=== PATIENT | male | born 1960 | race Hispanic/Latino ===

== ENCOUNTER 2020-02-15 21:56 | Observation (INO) | payer BC ==
[~2020-02-15] VITALS: Ht 170.2 cm; Wt 79.4 kg
[2020-02-15 22:45] LABS: BASOPHILS % 0.3 % (0.0-1.0); EOSINOPHILS % 0.3 % (0.0-6.0); HEMOGLOBIN 14.5 g/dL (14.0-18.0); LYMPHOCYTES # (AUTO) 2.1 (1.0-3.2); LYMPHOCYTES % 28.8 % (18.0-39.1); MEAN CORPUSCULAR HEMOGLOBIN 32.7 pg (28-32); MEAN CORPUSCULAR HGB CONC 34.5 g/dL (31-35); MEAN CORPUSCULAR VOLUME 94.8 fL (81-99); MONOCYTES # (AUTO) 0.3 (0.2-0.8); MONOCYTES % 4.7 % (4.4-11.3); NEUTROPHILS # (AUTO) 4.8 (2.1-6.9); NEUTROPHILS % 65.6 % (38.7-80.0); PLATELET COUNT 206 x10e3/uL (140-360); RED BLOOD COUNT 4.43 x10e6/uL (4.3-5.7)
[2020-02-15 22:55] LABS: INR 0.92; PROTHROMBIN TIME 12.8 seconds (11.9-14.5)
[2020-02-15 22:56] LABS: PARTIAL THROMBOPLASTIN TIME 31.7 seconds (23.8-35.5)
[2020-02-15 23:03] LABS: AMYLASE 100 U/L (25-125); LIPASE 46 U/L (8-78)
[2020-02-15 23:05] LABS: ALANINE AMINOTRANSFERASE 19 IU/L (0-55); ALBUMIN 4.3 g/dL (3.5-5.0); ALBUMIN/GLOBULIN RATIO 1.3 (0.8-2.0); ALKALINE PHOSPHATASE 69 IU/L (40-150); ANION GAP 11.7 mmol/L (8-16); BLOOD UREA NITROGEN 8 mg/dL (7-26); BUN/CREATININE RATIO 10 (6-25); CALCIUM 9.7 mg/dL (8.4-10.2); CARBON DIOXIDE 26 mmol/L (22-29); CHLORIDE 107 mmol/L (98-107); CREATINE KINASE 103 IU/L (30-200); EST GLOMERULAR FILTRATION RATE > 60 ML/MIN (60-); GLUCOSE 104 mg/dL (74-118); POTASSIUM 3.7 mmol/L (3.5-5.1); SODIUM 141 mmol/L (136-145)
--- NOTE | 2020-02-15 23:06 | Emergency Department Note ---
History of Present Illnes History of Present Illness Chief Complaint: Chest Pain History of Present Illness This is a 59 year old male via POV for c/o chest pain, pt states that he was at work when he felt a 10 second acute onset of chest pain and almost felt like blacking out, pt has no complaints now other than mild epigastric pain that goes away with rest, STATES NO SYMPTOMS AT THIS TIME. Historian: Patient Arrival Mode: Car Onset (how long ago): hour(s) (1) Location: UPPER ABD/CHEST Quality: PAIN, ALMOST FAINTED Radiation: Reports other (BILATERAL SHOULDERS) Severity: moderate Onset quality: sudden Duration (how long): hour(s) (ONLY LASTED A FEW SECONDS) Timing of current episode: unable to specify Progression: resolved Chronicity: new Context: Denies recent illness, Denies recent surgery Relieving factors: rest Exacerbating factors: other (PT WAS AT WORK WHEN SYMPTOMS OCCURED) Treatments prior to arrival: none Past Medical/Family History Physician Review I have reviewed the patient's past medical and family history. Any updates have been documented here. Past Medical History Recent Fever: No Clinical Suspicion of Infectio: No New/Unexplained Change in Ment: No Past Medical History: None Other Medical History: pt denies any medical hx Social History Smoking Cessation: Never Smoker Alcohol Use: Occasional Any Illegal Drug Use: No Review of Systems Review of Systems Constitutional: Reports no symptoms EENTM: Reports no symptoms Cardiovascular: Reports as per HPI Respiratory: Reports no symptoms Gastrointestinal: Reports no symptoms Genitourinary: Reports no symptoms Musculoskeletal: Reports no symptoms Integumentary: Reports no symptoms Neurological: Reports as per HPI Psychological: Reports no symptoms Endocrine: Reports no symptoms Hematological/Lymphatic: Reports no symptoms Physical Exam Related Data Allergies: Coded Allergies: No Known Allergies (Unverified , 02/15/20) Triage Vital Signs Vital Signs Date Time Temp Pulse Resp B/P (MAP) Pulse Ox O2 Delivery O2 Flow Rate FiO2 02/15/20 22:30 98.1 86 18 158/90 99 Room Air Physical Exam CONSTITUTIONAL Constitutional: Present well-developed, Present well-nourished; Absent distressed HENT HENT: Present normocephalic, Present atraumatic, Present oropharynx clear/moist, Present nose normal HENT L/R: Present left ext ear normal, Present right ext ear normal EYES Eyes: Reports PERRL, Reports conjunctivae normal NECK Neck: Present ROM normal PULMONARY Pulmonary: Present effort normal, Present breath sounds normal CARDIOVASCULAR Cardiovascular: Present regular rhythm, Present heart sounds normal, Present capillary refill normal, Present normal rate GASTROINTESTINAL Abdominal: Present soft, Present nontender, Present bowel sounds normal GENITOURINARY Genitourinary: Present exam deferred SKIN Skin: Present warm, Present dry MUSCULOSKELETAL Musculoskeletal: Present ROM normal NEUROLOGICAL Neurological: Present alert, Present oriented x 3, Present no gross motor or sensory deficits PSYCHOLOGICAL Psychological: Present mood/affect normal, Present judgement normal Results Laboratory Result Diagram: 02/15/20 2235 Laboratory Laboratory Tests Test 02/15/20 22:35 White Blood Count 7.29 x10e3/uL (4.8-10.8) Red Blood Count 4.43 x10e6/uL (4.3-5.7) Hemoglobin 14.5 g/dL (14.0-18.0) Hematocrit 42.0 % (38.2-49.6) Mean Corpuscular Volume 94.8 fL (81-99) Mean Corpuscular Hemoglobin 32.7 pg (28-32) Mean Corpuscular Hemoglobin Concent 34.5 g/dL (31-35) Red Cell Distribution Width 13.0 % (11.7-14.4) Platelet Count 206 x10e3/uL (140-360) Neutrophils (%) (Auto) 65.6 % (38.7-80.0) Lymphocytes (%) (Auto) 28.8 % (18.0-39.1) Monocytes (%) (Auto) 4.7 % (4.4-11.3) Eosinophils (%) (Auto) 0.3 % (0.0-6.0) Basophils (%) (Auto) 0.3 % (0.0-1.0) Neutrophils # (Auto) 4.8 (2.1-6.9) Lymphocytes # (Auto) 2.1 (1.0-3.2) Monocytes # (Auto) 0.3 (0.2-0.8) Eosinophils # (Auto) 0.0 (0.0-0.4) Basophils # (Auto) 0.0 (0.0-0.1) Absolute Immature Granulocyte (auto 0.02 x10e3/uL (0-0.1) Prothrombin Time 12.8 seconds (11.9-14.5) Prothromb Time International Ratio 0.92 Activated Partial Thromboplast Time 31.7 seconds (23.8-35.5) Sodium Level 141 mmol/L (136-145) Potassium Level 3.7 mmol/L (3.5-5.1) Chloride Level 107 mmol/L (98-107) Carbon Dioxide Level 26 mmol/L (22-29) Anion Gap 11.7 mmol/L (8-16) Blood Urea Nitrogen 8 mg/dL (7-26) Creatinine 0.80 mg/dL (0.72-1.25) Estimat Glomerular Filtration Rate > 60 ML/MIN (60-) BUN/Creatinine Ratio 10 (6-25) Glucose Level 104 mg/dL (74-118) Calcium Level 9.7 mg/dL (8.4-10.2) Total Bilirubin 0.3 mg/dL (0.2-1.2) Aspartate Amino Transf (AST/SGOT) 26 IU/L (5-34) Alanine Aminotransferase (ALT/SGPT) 19 IU/L (0-55) Alkaline Phosphatase 69 IU/L (40-150) Creatine Kinase 103 IU/L (30-200) Creatine Kinase MB 1.50 ng/mL (0-5.0) Troponin I 0.006 ng/mL (0-0.300) Total Protein 7.6 g/dL (6.5-8.1) Albumin 4.3 g/dL (3.5-5.0) Globulin 3.3 g/dL (2.3-3.5) Albumin/Globulin Ratio 1.3 (0.8-2.0) Amylase Level 100 U/L (25-125) Lipase 46 U/L (8-78) Laboratory Tests Test 02/15/20 22:35 White Blood Count 7.29 x10e3/uL (4.8-10.8) Red Blood Count 4.43 x10e6/uL (4.3-5.7) Hemoglobin 14.5 g/dL (14.0-18.0) Hematocrit 42.0 % (38.2-49.6) Mean Corpuscular Volume 94.8 fL (81-99) Mean Corpuscular Hemoglobin 32.7 pg (28-32) Mean Corpuscular Hemoglobin Concent 34.5 g/dL (31-35) Red Cell Distribution Width 13.0 % (11.7-14.4) Platelet Count 206 x10e3/uL (140-360) Neutrophils (%) (Auto) 65.6 % (38.7-80.0) Lymphocytes (%) (Auto) 28.8 % (18.0-39.1) Monocytes (%) (Auto) 4.7 % (4.4-11.3) Eosinophils (%) (Auto) 0.3 % (0.0-6.0) Basophils (%) (Auto) 0.3 % (0.0-1.0) Neutrophils # (Auto) 4.8 (2.1-6.9) Lymphocytes # (Auto) 2.1 (1.0-3.2) Monocytes # (Auto) 0.3 (0.2-0.8) Eosinophils # (Auto) 0.0 (0.0-0.4) Basophils # (Auto) 0.0 (0.0-0.1) Absolute Immature Granulocyte (auto 0.02 x10e3/uL (0-0.1) Prothrombin Time 12.8 seconds (11.9-14.5) Prothromb Time International Ratio 0.92 Activated Partial Thromboplast Time 31.7 seconds (23.8-35.5) Lab results reviewed: Yes Imaging Imaging results reviewed: Yes Impressions Procedure: [id number] CT/CTA CHEST Exam Date: Exam Time: REPORT STATUS: Signed EXAM: CTA of the Thoracoabdominal Aorta and Pelvic Arteries WITH Contrast INDICATION: EVAL FOR ANUERSYM COMPARISON: None. TECHNIQUE: Multi-detector CT technology was employed. CTA Gated axial imaging of the chest, abdomen, and pelvis was performed after the administration of IV contrast. IV CONTRAST: 150 mL of Omnipaque 350 ORAL CONTRAST: None COMPLICATIONS: None For optimization of anatomic evaluation, multiplanar reconstruction, maximum intensity projections, and advanced 3-D off-line postprocessing were performed on a dedicated stand-alone workstation under the direct supervision of the interpreting physician. FINDINGS: Potential study limitations: None. LINES/ TUBES: None. VASCULAR WITH ADVANCED 3-D OFF-LINE POSTPROCESSING: Aortic valve morphology is trileaflet and contains no calcifications. The thoracic aorta is normal in course, caliber, and contour. There is no acute aortic pathology, such as dissection, intramural hematoma, or contained rupture. Aortic plaques: Mild. The arch vessel branching pattern is conventional. All of the arch branch vessels appear widely patent in their proximal portions. The abdominal aorta is normal in course, caliber, and contour. There is no acute aortic pathology . Aortic plaques: Mild. The celiac axis, SMA, and LATRICIA are patent. Renal arteries are patent. The pelvic arteries are normal in caliber and contour. There are minimal atherosclerotic changes of the pelvic arteries. LUNGS AND AIRWAYS: Mild dependent atelectasis. No consolidation. Airways are patent. PLEURA: The pleural spaces are clear.. HEART AND MEDIASTINUM: The thyroid gland is normal. No mediastinal, hilar or axillary lymphadenopathy. The main pulmonary artery is normal in size. The cardiac chambers demonstrate normal atrioventricular and ventriculoarterial concordance, and systemic and pulmonary venous return. The cardiac chambers are normal in size. The coronary arteries have normal origins and courses. There are mild coronary calcifications, though this study was not optimized for coronary artery evaluation. There is no pericardial effusion. ABDOMEN: The liver, gallbladder, spleen, and pancreas appear normal. The adrenal glands appear normal. Both kidneys are normal in size, shape, and density. There is no abnormal mass or hydronephrosis. PELVIS: There is no significant retroperitoneal adenopathy. No free fluid or free air within the abdomen or pelvis. The bowel appears unremarkable. The urinary bladder appears normal. BONES: Mild compression deformity of the T7 vertebral body involving less than 10% vertebral body height loss. No retropulsion. Degenerative changes of the thoracic spine. Anterior flowing osteophytes. IMPRESSION: 1. Normal thoracic aorta. No acute aortic pathology identified. 2. Normal abdominal aorta. No acute abdominal aortic pathology. 3. Age-indeterminate mild compression deformity of the T7 vertebral body. Signed by: Louisa Vázquez MD on 02/16/2020 12:38 AM Dictated By: LOUISA VÁZQUEZ MD Transcribed By: TY on 02/16/2037 Procedure: [id number] CT/CT BRAIN WO Exam Date: Exam Time: REPORT STATUS: Signed EXAMINATION: Head CT without contrast. HISTORY:Near syncope. COMPARISON:None. TECHNIQUE: Multidetector axial images were obtained from the foramen magnum to the vertex without contrast. The images were reconstructed using brain and bone algorithms. Thin section brain images were reformatted into coronal and sagittal planes. Dose modulation, iterative reconstruction, and/or weight based adjustment of the mA/kV was utilized to reduce the radiation dose to as low as reasonably achievable. Intravenous contrast: None IMAGE QUALITY: Acceptable. FINDINGS: Skull/scalp: No lytic or blastic. lesions. No surgical changes. Parenchyma: Nonspecific bilateral frontoparietal patchy white matter hypodensity are likely related to small vessel ischemic changes. No acute hemorrhage, mass or acute major vascular territorial infarct. Arteries: No density suggestive of thrombosis. Dural sinuses: No abnormal density suggestive of thrombosis. Ventricles: No hydrocephalus or displacement. Extra-axial spaces: No abnormal density. Brain volume: Normal for age. Craniocervical junction: No mass, Chiari malformation, or basilar invagination. Sella: No mass. Paranasal/mastoid sinuses: Imaged portions unremarkable. IMPRESSION: No acute intracranial abnormality. Mild supratentorial white matter microvascular ischemic changes. Signed by: Dr. Yazmin Chu M.D. on 02/16/2020 12:20 AM Dictated By: YAZMIN CHU MD Transcribed By: TY on 02/16/2019 COPY TO: CALOS JERNIGAN MD~ Procedures 12 Lead ECG Interpretation ECG Interpretation : ECG: ECG 1 [facility]: Interpreted by ED physician Date: Feb 15, 2020 Time: 22:30 Rhythm: sinus rhythm Rate: normal BPM: 82 QRS axis: normal ST segments normal: Yes T waves normal: Yes Other findings: no other findings Clinical Impression: normal ECG Assessment & Plan Medical Decision Making MDM PT WITH SHORT EPISODE OF UPPER ABD/CHEST PAIN WITH NEAR SYNCOPE CBC, CMP, EKG, CARDIAC ENZYMES, CTA CHEST/ABD/PELVIS, CT BRAIN ORDERED TO EVAL FOR MYOCARDIAL INFARCTION, ARRHYTHMIA, AORTIC ANEURYSM, AORTIC DISSECTION, I SPOKE WITH DR CAT AND DR MARA MARIN IN OBS Assessment & Plan Final Impression: (1) Chest pain (2) Near syncope Depart Disposition: ADMITTED Last Vital Signs Date Time Temp Pulse Resp B/P (MAP) Pulse Ox O2 Delivery O2 Flow Rate FiO2 02/15/20 22:30 98.1 86 18 158/90 99 Room Air CALOS JERNIGAN MD Feb 15, 2020 23:06
[2020-02-16] VITALS (8 sets, daily range): BP systolic 121–144; BP diastolic 72–87
--- NOTE | 2020-02-16 00:23 | Diagnostic Imaging Report ---
EXAMINATION: Head CT without contrast. HISTORY:Near syncope. COMPARISON:None. TECHNIQUE: Multidetector axial images were obtained from the foramen magnum to the vertex without contrast. The images were reconstructed using brain and bone algorithms. Thin section brain images were reformatted into coronal and sagittal planes. Dose modulation, iterative reconstruction, and/or weight based adjustment of the mA/kV was utilized to reduce the radiation dose to as low as reasonably achievable. Intravenous contrast: None IMAGE QUALITY: Acceptable. FINDINGS: Skull/scalp: No lytic or blastic. lesions. No surgical changes. Parenchyma: Nonspecific bilateral frontoparietal patchy white matter hypodensity are likely related to small vessel ischemic changes. No acute hemorrhage, mass or acute major vascular territorial infarct. Arteries: No density suggestive of thrombosis. Dural sinuses: No abnormal density suggestive of thrombosis. Ventricles: No hydrocephalus or displacement. Extra-axial spaces: No abnormal density. Brain volume: Normal for age. Craniocervical junction: No mass, Chiari malformation, or basilar invagination. Sella: No mass. Paranasal/mastoid sinuses: Imaged portions unremarkable. IMPRESSION: No acute intracranial abnormality. Mild supratentorial white matter microvascular ischemic changes. Signed by: Dr. Yazmin Chu M.D. on 02/16/2020 12:20 AM
--- NOTE | 2020-02-16 00:41 | Diagnostic Imaging Report ---
EXAM: CTA of the Thoracoabdominal Aorta and Pelvic Arteries WITH Contrast INDICATION: EVAL FOR ANUERSYM COMPARISON: None. TECHNIQUE: Multi-detector CT technology was employed. CTA Gated axial imaging of the chest, abdomen, and pelvis was performed after the administration of IV contrast. IV CONTRAST: 150 mL of Omnipaque 350 ORAL CONTRAST: None COMPLICATIONS: None For optimization of anatomic evaluation, multiplanar reconstruction, maximum intensity projections, and advanced 3-D off-line postprocessing were performed on a dedicated stand-alone workstation under the direct supervision of the interpreting physician. FINDINGS: Potential study limitations: None. LINES/ TUBES: None. VASCULAR WITH ADVANCED 3-D OFF-LINE POSTPROCESSING: Aortic valve morphology is trileaflet and contains no calcifications. The thoracic aorta is normal in course, caliber, and contour. There is no acute aortic pathology, such as dissection, intramural hematoma, or contained rupture. Aortic plaques: Mild. The arch vessel branching pattern is conventional. All of the arch branch vessels appear widely patent in their proximal portions. The abdominal aorta is normal in course, caliber, and contour. There is no acute aortic pathology . Aortic plaques: Mild. The celiac axis, SMA, and LATRICIA are patent. Renal arteries are patent. The pelvic arteries are normal in caliber and contour. There are minimal atherosclerotic changes of the pelvic arteries. LUNGS AND AIRWAYS: Mild dependent atelectasis. No consolidation. Airways are patent. PLEURA: The pleural spaces are clear.. HEART AND MEDIASTINUM: The thyroid gland is normal. No mediastinal, hilar or axillary lymphadenopathy. The main pulmonary artery is normal in size. The cardiac chambers demonstrate normal atrioventricular and ventriculoarterial concordance, and systemic and pulmonary venous return. The cardiac chambers are normal in size. The coronary arteries have normal origins and courses. There are mild coronary calcifications, though this study was not optimized for coronary artery evaluation. There is no pericardial effusion. ABDOMEN: The liver, gallbladder, spleen, and pancreas appear normal. The adrenal glands appear normal. Both kidneys are normal in size, shape, and density. There is no abnormal mass or hydronephrosis. PELVIS: There is no significant retroperitoneal adenopathy. No free fluid or free air within the abdomen or pelvis. The bowel appears unremarkable. The urinary bladder appears normal. BONES: Mild compression deformity of the T7 vertebral body involving less than 10% vertebral body height loss. No retropulsion. Degenerative changes of the thoracic spine. Anterior flowing osteophytes. IMPRESSION: 1. Normal thoracic aorta. No acute aortic pathology identified. 2. Normal abdominal aorta. No acute abdominal aortic pathology. 3. Age-indeterminate mild compression deformity of the T7 vertebral body. Signed by: Reddy Tim MD on 02/16/2020 12:38 AM
[2020-02-16] MEDS ORDERED: SODIUM CHLORIDE 0.9% 100 ML ONE (01:06)
[2020-02-16] MEDS ORDERED: IOPAMIDOL 370 MG/ML 200 ML INFUS..BTL INJ ONE (01:06)
[2020-02-16] MEDS ORDERED: MORPHINE SULFATE 2 MG/ML SYR 1ML IV PRN (01:15)
[2020-02-16] MEDS ORDERED: SODIUM CHLORIDE FLUSH 10 ML SYR INJ PRN (01:15)
[2020-02-16] MEDS ORDERED: ONDANSETRON HCL INJ 2MG/ML 2ML 2 MG/ML VIAL IV PRN (01:15)
--- OUTSIDE RECORDS SUMMARY | 2020-02-16 01:31 | XMS REPORT | Continuity of Care Document ---
Author Author [facility] t Organization [facility] Address [address] [place] [address] Dr. Tim. [address] [place] [phone] Phone Unavailable Care Team Providers Care Faculty Criminal Justice Name Role Phone Clinton JERNIGAN Attphys Unavailable Problems This patient has no known problems. Allergies, Adverse Reactions, Alerts This patient has no known allergies or adverse reactions. Medications This patient has no known medications. Procedures This patient has no known procedures. Results Test Description Test Time Test Comments Results Result Comments Source CT BRAIN WO 2020-02-16 00:17:00 [facility] 1960 Sex: M [facility] [address] [address] Patient Name: DHARA YOUNG MR #: [id number] : 1960 Age/Sex: 59/M Req #: [id number] Adm Physician: Ordered by: CALOS JERNIGAN MD Report #: [id number] Location: ER Room/Bed: Procedure: [id number] CT/CT BRAIN WO Exam Date: Exam Time: REPORT STATUS: Signed EXAMINATION: Head CT without contrast. HISTO RY:Near syncope. COMPARISON:None. TECHNIQUE: Multidetector axial images were obtained from the foramen magnum to the vertex without contrast. The images were reconstructed using brain and bone algorithms. Thin section brain images were reformatted into coronal and sagittal planes. Dose modulation, iterative reconstruction, and/or weight based adjustment of the mA/kV was utilized to reduce the radiation dose to as low as reasonably achievable. Intravenous contrast: None IMAGE QUALITY: Acceptable. FINDINGS: Skull/scalp: No lytic or blastic. lesions. No surgical changes. Parenchyma: Nonspecific bilateral frontoparietal patchy white matter hypodensity are likely related to small vessel ischemic changes. No acute hemorrhage, mass or acute major vascular territorial infarct. Arteries: No density suggestive of thrombosis. Dural sinuses: No abnormal density suggestive of thrombosis. Ventricles: No hydrocephalus or displacement. Extra-axial spaces: No abnormal density. Brain volume: Normal for age. Craniocervical junction: No mass, Chiari malformation, or basilar invagination. Sella: No mass. Paranasal/mastoid sinuses: Imaged portions unremarkable. IMPRESSION: No acute intracranial abnormality. Mild supratentorial white matter microvascular ischemic changes. Signed by: Dr. Yazmin Chu M.D. on 02/16/2020 12:20 AM Dictated By: YAZMIN CHU MD Transcribed By: TY on 02/16/2019 COPY TO: CALOS JERNIGAN MD CTA CHEST 2020-02-16 00:14:00 [facility] : 1960 Sex: M [facility] [address] [address] Patient Name: DHARA YOUNG MR #: [id number] : 1960 Age/Sex: 59/M Req #: [id number] Adm Physician: Ordered by: CALOS JERNIGAN MD Report #: [id number] Location: ER Room/Bed: Procedure: [id number] CT/CTA CHEST Exam Date: Exam Time: REPORT STATUS: Signed EXAM: CTA of the Thoracoabdominal Aorta and Pelvic Arteries WITH Contrast INDICATION: EVAL FOR ANUERSYM COMPARISON: None. TECHNIQUE: Multi-detector CT technology was employed. CTA Gated axial imaging of the chest, abdomen, and pelvis was performed after the administration of IV contrast. IV CONTRAST: 150 mL of Omnipaque 350 ORAL CONTRAST: None COMPLICATIONS: None For optimization of anatomic evaluation, multiplanar reconstruction, maximum intensity projections, and advanced 3-D off-line postprocessing were performed on a dedicated stand-alone workstation under the direct supervision of the interpreting physician. FINDINGS: Potential study limitations: None. LINES/ TUBES: None. VASCULAR WITH ADVANCED 3-D OFF-LINE POSTPROCESSING: Aortic valve morphology is trileaflet and contains no calcifications. The thoracic aorta is normal in course, caliber, and contour. There is no acute aortic pathology, such as dissection, intramural hematoma, or contained rup ture. Aortic plaques: Mild. The arch vessel branching pattern is conventional. All of the arch branch vessels appear widely patent in their proximal portions. The abdominal aorta is normal in course, caliber, and contour. There is no acute aortic pathology . Aortic plaques: Mild. The celiac axis, SMA, and LATRICIA are patent. Renal arteries are patent. The pelvic arteries are normal in caliber and contour. There are minimal atherosclerotic changes of the pelvic arteries. LUNGS AND AIRWAYS: Mild dependent atelectasis. No consolidation. Airways are patent. PLEURA: The pleural spaces are clear.. HEART AND MEDIASTINUM: The thyroid gland is normal. No mediastinal, hilar or axillary lymphadenopathy. The main pulmonary artery is normal in size. The cardiac chambers demonstrate normal atrioventricular and ventriculoarterial concordance, and systemic and pulmonary venous return. The cardiac chambers are normal in size. The coronary arteries have normal origins and courses. There are mild coronary calcifications, though this study was not optimized for coronary artery evaluation. There is no pericardial effusion. ABDOMEN: The liver, gallbladder, spleen, and pancreas appear normal. The adrenal glands appear normal. Both kidneys are normal in size, shape, and density. There is no abnormal mass or hydronephrosis. PELVIS: There is no significant retroperitoneal adenopathy. No free fluid or free air within the abdomen or pelvis. The bowel appears unremarkable. The urinary bladder appears normal . BONES: Mild compression deformity of the T7 vertebral body involving less than 10% vertebral body height loss. No retropulsion. Degenerative changes of the thoracic spine. Anterior flowing osteophytes. IMPRESSION: 1. Normal thoracic aorta. No acute aortic pathology identified. 2. Normal abdominal aorta. No acute abdominal aortic pathology. 3. Age- indeterminate mild compression deformity of the T7 vertebral body. Signed by: Louisa Vázquez MD on 02/16/2020 12:38 AM Dictated By: LOUISA VÁZQUEZ MD Transcribed By: TY on 02/16/2037 COPY TO: CALOS JERNIGAN MD CTA ABD/PELVIS 2020-02-16 00:14:00 [facility]: DHARA YOUNG : 1960 Sex: M [facility] [address] [address] Patient Name: DHARA YOUNG MR #: [id number] : 1960 Age/Sex: 59/M Req #: [id number] [facility] Physician: Ordered by: CALOS JERNIGAN MD Report #: [id number] Location: ER Room/Bed: Procedure: [id number] CT/CTA ABD/PELVIS Exam Date: Exam Time: REPORT STATUS: Signed EXAM: CTA of the Thoracoabdominal Aorta and Pelvic Arteries WITH Contrast INDICATION: EVAL FOR ANUERSYM COMPARISON: None. TECHNIQUE: Multi-detector CT technology was employed. CTA Gated axial imaging of the chest, abdomen, and pelvis was performed after the administration of IV contrast. IV CONTRAST: 150 mL of Omnipaque 350 ORAL CONTRAST: None COMPLICATIONS: None For optimization of anatomic evaluation, multiplanar reconstruction, maximum intensity projections, and advanced 3-D off-line postprocessing were performed on a dedicated stand-alone workstation under the direct supervision of the interpreting physician. FINDINGS: Potential study limitations: None. LINES/ TUBES: None. VASCULAR WITH ADVANCED 3-D OFF-LINE POSTPROCESSING: Aortic valve morphology is trileaflet and contains no calcifications. The thoracic aorta is normal in course, caliber, and contour. There is no acute aortic pathology, such as dissection, intramural hematoma, or contained rupture. Aortic plaques: Mild. The arch vessel branching pattern is conventional. All of the arch branch vessels appear widely patent in their proximal portions. The abdominal aorta is normal in course, caliber, and contour. There is no acute aortic pathology . Aortic plaques: Mild. The celiac axis, SMA, and LATRICIA are patent. Renal arteries are patent. The pelvic arteries are normal in caliber and contour. There are minimal atherosclerotic changes of the pelvic arteries. LUNGS AND AIRWAYS: Mild dependent atelectasis. No consolidation. Airways are patent. PLEURA: The pleural spaces are clear.. HEART AND MEDIASTINUM: The thyroid gland is normal. No mediastinal, hilar or axillary lymphadenopathy. The main pulmonary artery is normal in size. The cardiac chambers demonstrate normal atrioventricular and ventriculoarterial concordance, and systemic and pulmonary venous return. The cardiac chambers are normal in size. The marcos nary arteries have normal origins and courses. There are mild coronary calcifications, though this study was not optimized for coronary artery evaluation. There is no pericardial effusion. ABDOMEN: The liver, gallbladder, spleen, and pancreas appear normal. The adrenal glands appear normal. Both kidneys are normal in size, shape, and density. There is no abnormal mass or hydronephrosis. PELVIS: There is no significant retroperitoneal adenopathy. No free fluid or free air within the abdomen or pelvis. The bowel appears unremarkable. The urinary bladder appears n ormal. BONES: Mild compression deformity of the T7 vertebral body involving less than 10% vertebral body height loss. No retropulsion. Degenerative changes of the thoracic spine. Anterior flowing osteophytes.
[2020-02-16] MEDS ORDERED: INFLUENZA VIRUS VAC SPLIT INJ 0.5 ML SYR IM SCH (03:08)
[2020-02-16] MEDS ORDERED: METAMUCIL FIBE3.4 GM PO (03:10)
--- NOTE | 2020-02-16 07:21 | NUR ---
RECEIVED BEDSIDE SHIFT REPORT FROM OFF GOING NIGHT NURSE. PATIENT IN STABLE CONDITION, NO S/S OF DISTRESS NOTED. RESPIRATIONS EVEN AND NONLABORED. PATIENT ABLE TO VOICE NEEDS. NO CHEST PAIN NOTED. IV SITE ASYMPTOMATIC AND PATENT, TRANSPARENT DRESSING C/D/I. TELEMETRY APPLIED. BED LOCKED AND IN LOWEST POSITION, SIDE RAILS X 2. CALL LIGHT WITHIN REACH.
[2020-02-16] MEDS ORDERED: ASPIRIN 81 MG ENTERIC COATED PO SCH (09:00)
[2020-02-16] MEDS ORDERED: ACETAMINOPHEN 325 MG TAB PO PRN (09:00)
[2020-02-16 10:15] LABS: CREATINE KINASE 79 IU/L (30-200)
[2020-02-16] MEDS ORDERED: ASPIRIN 81 MG CHEW TAB PO ONE (10:15)
--- NOTE | 2020-02-16 10:32 | History and Physical ---
HISTORY OF PRESENT ILLNESS: A 59 years old male, no past medical history, who came with epigastric and chest pain that lasted for few seconds and went away, accompanied by near syncopal episode. The patient is feeling fine now, the pain is gone. He had a CT of the chest and the abdomen, completely unremarkable. EKG normal. Troponin negative. We are going to have carotid Doppler and echocardiogram today, and Cardiology consult with Dr. Castanon. needed by Dr. Castanon, the patient may be able to go home today. REVIEW OF SYSTEMS: CARDIOVASCULAR: He had this episode of lower sternal epigastric chest pain which lasted approximately 10 seconds and then went away. No palpitation. RESPIRATORY: No shortness of breath. No cough. GI: No nausea or vomiting. No diarrhea. GENITOURINARY: No frequency or dysuria. ALLERGIES: HE IS NOT ALLERGIC TO ANY MEDICATION. PAST MEDICAL HISTORY: He denies any medical condition. SOCIAL HISTORY: He does not smoke. He drinks occasionally. PHYSICAL EXAMINATION: VITAL SIGNS: Blood pressure 125/76, heart rate 75 per minute, respiratory rate is 16 per minute, temperature 97.7, and oxygen saturation 100%. HEART: Regular rhythm. Normal S1, S2 sound. LUNGS: Clear bilaterally. ABDOMEN: Soft, nontender. No distention. No visceromegaly. EXTREMITIES: No edema. IMAGING AND LABORATORY DATA: EKG showed normal sinus rhythm, no evidence of any ST-segment elevation or depression. CT of the chest and abdomen, no significant abnormalities. On the blood work: CBC; white blood count 7.29, hemoglobin 14.5, hematocrit 42.0, and platelet count 206,000. On the BMP; sodium 141, potassium 3.7, chloride 107, CO2 of 26, BUN 9, creatinine 0.80, glucose 104, and calcium 9.7. AST 26, ALT 19, and alkaline phosphatase 69. Creatine kinase 103, CK-MB normal at 1.50, troponin negative at 0.006. Total protein 7.6, albumin 4.3, globulin 3.3, albumin-globin ratio 1.3, amylase 100, and lipase 46. COVID test is negative. the patient had a CT of the head, which showed no acute intracranial abnormality, mild supratentorial white matter microvascular ischemic changes. On the other ones, the CT of the chest and abdomen showed normal thoracic aorta. No acute aortic pathology is identified. Normal abdominal aorta. No acute abdominal aortic pathology. Age indeterminate mild compression deformity at T7 vertebral body. IMPRESSION: 1. Very atypical chest pain. 2. Near syncope. 3. Thoracic vertebral fracture #7 with indeterminate age. 4. Alcohol use. PLAN OF TREATMENT: We are going to put him on aspirin 81 mg daily, Tylenol 325 mg q.4 hours as needed for pain or fever. Echocardiogram has been ordered. Carotid Doppler has been ordered. Consult with Dr. Castanon. Troponins x3. The first one is negative. The patient is on telemetry. Tentative discharge today if okay with clay burner. MD KAVON Craft/RADHA /[id number]
[2020-02-16] MEDS: PSYLLIUM 6GM PACKET PO SCH (10:50)
--- NOTE | 2020-02-16 12:47 | Consultation ---
DATE OF CONSULTATION: 02/16/2020 Cardiology consultation REASON FOR CONSULTATION: Chest pain. HISTORY OF PRESENT ILLNESS: Mr. Contreras is a 59-year-old gentleman with really no significant past medical history, who is employed in construction and works hard. Typically, he is very healthy. About two weeks ago, he has noted some episodes of left upper sternal to left apical chest discomfort, it is fleeting, lasting up to a minute at a time, associated with intermittent aches to the right neck and right shoulder region, associated with dizziness and lightheadedness and a feeling of fluttering in his chest. The patient was concerned with these near syncopal spells and decided to come to the emergency room for further care and management. Thus far, he had an EKG which was unremarkable and his 1st set of cardiac biomarkers are strongly negative. He had a CTA chest, abdomen, pelvis, which was unremarkable for any dissection or any acute abnormalities. CT of the brain reveals just very mild chronic microvascular ischemic changes but no acute abnormalities. Cardiology is consulted for further care and evaluation. Currently, he is in telemetry in sinus rhythm. Heart rates in the 70s. PAST MEDICAL HISTORY: None. PAST SURGICAL HISTORY: None. FAMILY HISTORY: Mother alive in her 80s, lives in [place]. Father at 80. He was killed. There is no premature family history of coronary artery disease. SOCIAL HISTORY: He is a nonsmoker. Denies any illicit drug use. He does drink three beers a day. ALLERGIES: NO KNOWN DRUG ALLERGIES. HOME MEDICATIONS: None. REVIEW OF SYSTEMS: GENERAL: Denies any fevers, chills, or weight changes. HEENT: No headaches, visual complaints, sore throat, or stuffy nose. RESPIRATORY: Denies any pleuritic chest pain or shortness of breath. Does have the right shoulder pain as noted above. CARDIOVASCULAR: As per HPI. GI: Denies any abdominal pain, bright red blood per rectum, melena, hematemesis, nausea, or vomiting. : Denies any dysuria, pyuria, or change in urine frequency. MUSCULOSKELETAL: Shoulder pain on the right as noted above. No leg weakness or muscle aches. ENDOCRINE: Denies any heat or cold intolerance. NEUROLOGIC: Positive for lightheadedness. No vertigo. No focal weakness, numbness, or tingling. SKIN: No rashes. Remainder of review of systems negative otherwise mentioned. PHYSICAL EXAMINATION: VITAL SIGNS: Height of 67 inches, weight of 175 pounds. BMI is 27.4, temperature of 97.7, pulse 75, respiratory rate of 16, blood pressure 125/76, and O2 saturation 100% on room air. GENERAL: This is a well-nourished, well-developed gentleman, who is currently in no apparent distress. HEENT: Normocephalic and atraumatic. Pupils are equal, round, reactive to light. Extraocular movements are intact. Oropharynx is clear. NECK: No elevation of jugular venous pulsation. No carotid bruits. CARDIOVASCULAR: Regular rate and rhythm. Normal S1, S2. Soft 2/6 systolic murmur at the left lower sternal border. LUNGS: Clear to auscultation bilaterally. No chest wall tenderness to palpation. ABDOMEN: Soft, nontender, nondistended. Normoactive bowel sounds. No hepatosplenomegaly. BACK: No costovertebral angle tenderness. EXTREMITIES: Warm with 2+ bilateral femoral pulses, 1 to 2+ radial pulses and 1+ pedal pulses. NEUROLOGIC: Alert and oriented x3. Cranial nerves II through XII are intact. Strength is 5/5. Grossly nonfocal. PSYCH: Normal fluent speech. Appropriate affect. No anxiety or delusions. LABORATORY DATA: White count of 7.3, hemoglobin 14.5, hematocrit of 42.0, and platelets of 206. Sodium 141, potassium 3.7, chloride 107, bicarb 26, BUN 8, creatinine 0.8, glucose of 104, calcium 9.7, AST 26, ALT 19, alkaline phosphatase 69, total protein of 7.6, albumin of 4.3, and troponin is 0.006 with normal CK and MB. Amylase 100, lipase 46. INR 0.92. COVID PCR pending. CTA chest, abdomen and pelvis noted no dissection, no acute abnormalities. There is an old age indeterminate mild compression deformity at the T7 vertebral body. Brain CT shows very mild microvascular ischemic changes. EKG, sinus rhythm. DIAGNOSES: 1. Repeated episodes of near syncope. 2. Chest pain with mixed features. 3. History of alcoholic dependence. PLAN/RECOMMENDATIONS: 1. From a cardiovascular standpoint, we will go ahead and monitor him on telemetry to look for any tachy or macrina arrhythmias. 2. Aggressive risk factor modification. Medical therapy. 3. We will follow up on echocardiogram and carotid duplex ordered. 4. We will have a low threshold to proceeding with ischemic risk stratification. We will follow up on serial cardiac biomarkers. 5. Warning signs and symptoms counseled. 6. We will continue to follow. Thank you for this referral. MD JESUS Berry/RADHA /[id number]
[2020-02-16 14:32] LABS: CREATINE KINASE 76 IU/L (30-200)
--- NOTE | 2020-02-16 19:02 | NUR ---
WALKING ROUNDS PERFORMED, RECEIVED PT LAYING SEMI FOWLERS IN BED, AAOX3, RR EVEN AND NON-LABORED, ON ROOM AIR. NO S/SX OF DISTRESS NOTED. LEFT PT LAYING SEMI FOWLERS IN BED, BED IN LOW LOCKED POSITION, SIDE RAILS UPX2, CALL LIGHT AND PHONE WITHIN REACH.
--- NOTE | 2020-02-16 19:10 | NUR ---
COMPLETED BEDSIDE SHIFT REPORT AND ROUNDING WITH ONCOMING NIGHT NURSE. PATIENT IN STABLE CONDITION, NO S/S OF DISTRESS NOTED. RESPIRATIONS EVEN AND NONLABORED. PATIENT ABLE TO VOICE NEEDS. NO CHEST PAIN NOTED. IV SITE ASYMPTOMATIC AND PATENT, TRANSPARENT DRESSING C/D/I. TELEMETRY APPLIED. BED LOCKED AND IN LOWEST POSITION, SIDE RAILS X 2. CALL LIGHT WITHIN REACH.
[2020-02-17] VITALS: BP 126/73
[2020-02-17 04:00] VITALS: BP 134/85
[2020-02-17 05:14] LABS: BASOPHILS % 0.3 % (0.0-1.0); EOSINOPHILS # (AUTO) 0.1 (0.0-0.4); HEMATOCRIT 44.1 % (38.2-49.6); LYMPHOCYTES # (AUTO) 1.8 (1.0-3.2); LYMPHOCYTES % 29.7 % (18.0-39.1); MEAN CORPUSCULAR VOLUME 96.9 fL (81-99); MONOCYTES # (AUTO) 0.4 (0.2-0.8); MONOCYTES % 7.2 % (4.4-11.3); NEUTROPHILS # (AUTO) 3.8 (2.1-6.9); NEUTROPHILS % 61.6 % (38.7-80.0); PLATELET COUNT 209 x10e3/uL (140-360); RED BLOOD COUNT 4.55 x10e6/uL (4.3-5.7); RED CELL DISTRIBUTION WIDTH 12.9 % (11.7-14.4)
[2020-02-17 05:32] LABS: ANION GAP 10.6 mmol/L (8-16); BLOOD UREA NITROGEN 13 mg/dL (7-26); BUN/CREATININE RATIO 16 (6-25); CARBON DIOXIDE 25 mmol/L (22-29); CHLORIDE 109 mmol/L (98-107); CREATINE KINASE 65 IU/L (30-200); EST GLOMERULAR FILTRATION RATE > 60 ML/MIN (60-); GLUCOSE 101 mg/dL (74-118); POTASSIUM 3.6 mmol/L (3.5-5.1); SODIUM 141 mmol/L (136-145)
[2020-02-17 05:56] LABS: CHOL/HDL RATIO 2.3 (3.9-4.7); FREE THYROXINE INDEX 2.2654 (1.4-3.8); THYROID STIMULATING HORMONE 0.503 uIU/mL (0.350-4.940)
[2020-02-17 08:04] VITALS: BP 130/76
[2020-02-17 08:19] VITALS: BP 130/76
[2020-02-17] MEDS: PSYLLIUM 6GM PACKET PO SCH (08:39)
[2020-02-17] MEDS ORDERED: ASPIRIN 325 MG TAB PO SCH (09:00)
[2020-02-17] MEDS ORDERED: REGADENOSON 0.4 MG/5 ML SYR IV ONE (10:10)
--- NOTE | 2020-02-17 10:32 | Progress Note ---
DATE: Internal Medicine Progress Note SUBJECTIVE: The patient is 59 years old male, came with chest pain. He is going to have an adenosine Cardiolite stress test today and if that is negative, he might be able to go home. If positive, he is going to need a cardiac cath. PHYSICAL EXAMINATION: VITAL SIGNS: Blood pressure 130/76, temperature 97 degrees, heart rate 80 per minute, respiratory rate 21 per minute, and oxygen saturation 100%. HEART: Showed regular rhythm. LUNGS: Clear bilaterally. ABDOMEN: Soft. LABORATORY DATA: On the last chemistry, TSH is normal. LDL cholesterol is only 70. Troponins done 6, are completely negative. IMPRESSION: 1. Atypical chest pain. 2. Near syncope. 3. Thoracic vertebral fracture #7, which is indeterminate age. 4. Alcohol use. PLAN OF TREATMENT: Continue Tylenol 325 mg q.4 hours as needed for pain or fever and aspirin 325 mg daily. He got influenza vaccine. He is on morphine, we are going to discontinue the morphine, he does not need morphine. He is on Zofran 4 mg IV q.4 hours as needed for nausea and vomiting. He is on Metamucil [address] Castanon, Cardiology, he will do the stress test today. If it is negative, he might be able to go home. If positive, he is going to need a cardiac cath. MD KAVON Craft/RADHA /[id number]
[2020-02-17 11:56] VITALS: BP 134/75
--- NOTE | 2020-02-17 12:34 | Myoview Stress Test ---
DATE OF STUDY: 02/16/2020 10:07:00 Stress Test - Treadmill ONLY This is associated with dictation number [id number]. TITLE OF REPORT: Rest/stress myocardial perfusion imaging/single photon emission computed tomographic imaging, one day. INDICATION FOR STUDY: Chest pain. TECHNICAL DETAIL: After risks, benefits, pros and cons of today's Lexiscan nuclear stress test were explained to the patient and the patient agreed to proceed. He was brought down to the nuclear lab where he received 11.0 mCi dose of technetium-99m tetrofosmin intravenously and after 40 minutes, the patient was taken to the GE SPECT camera for resting myocardial computed tomographic imaging. Afterwards, the patient was then brought to the stress lab where 12-lead EKG monitoring and blood pressure monitor were obtained. He received a dose of Lexiscan 0.4 mg intravenously followed by a 33.0 mCi dose of technetium-99m tetrofosmin intravenously. Resting heart rate went from baseline of 84 beats per minute to a maximum of 110 beats per minute and blood pressure went from a baseline of 145/76 to 150/102, which showed appropriate hemodynamic response. Underlying EKG revealed sinus rhythm, normal axis, no ST-T wave changes and with Lexiscan infusion, there were no ischemic EKG changes or symptoms. After 25 minutes, the patient was then taken to the GE SPECT camera for stress myocardial perfusion computed tomographic imaging. FINDINGS: 1. Resting myocardial perfusion imaging reveals largely normal tracer uptake with adjacent hard GI artifact. 2. Stress myocardial perfusion imaging reveals largely normal tracer uptake with adjacent hard GI artifact. 3. The following gated measurements were obtained: End-diastolic volume 100 mL, end systolic volume 45 mL, calculated left ventricular ejection fraction 55% with normal wall motion. CONCLUSIONS: 1. Probable normal myocardial perfusion imaging study revealing seemingly normal tracer uptake though influenced by the presence of hard adjacent GI attenuation artifact. 2. Normal left ventricular function with calculated ejection fraction of 55%. 3. Overall finding of the stress test compatible with a low risk stress test. MD JESUS Berry/LEONELL /[id number]
[2020-02-17] MEDS ORDERED: INFLUENZA VIRUS VAC SPLIT INJ 0.5 ML SYR IM ONE (12:45)
[2020-02-18] MEDS ORDERED: PANTOPRAZOLE SOD 40 MG TABEC PO SCH (07:30)
== END 2020-02-17 13:18 | disposition home or self-care (01) ==
LOC: ER 22:30 → ERHOLD 02-16 01:28 → MED/SURG 02-16 02:15
PROVIDERS: ADMIT Internal Medicine; ATTEND Internal Medicine
DX: R07.89 Other chest pain (principal); M48.54XA Collapsed vertebra, not elsewhere classified, thoracic region, initial encounter for fracture; F10.21 Alcohol dependence, in remission; Z20.828 Contact with and (suspected) exposure to other viral communicable diseases
CPT/HCPCS: 36415 ×3; 70450; 71275; 74174; 78452; 80048; 80053; 80061; 82150; 82550 ×3; 82553 ×3; 83690; 84436; 84443; 84479; 84484 ×3; 85025 ×2; 85610; 85730; 93005; 93017; 93306; 93880; 99284; A9502; G0378 ×2; J2785; J7050; Q9967; U0002

== ENCOUNTER 2023-11-24 21:14 | Emergency (ER) | payer BC, MEDICARE ==
[~2023-11-24] VITALS: Ht 170.2 cm; Wt 73.9 kg
[~2023-11-24 21:14] MED LIST: METAMUCIL FIBE3.4 GM PO
[2023-11-24 21:26] VITALS: PULSE 73; RESP 18; TEMP 97.7
[2023-11-24] MEDS: ERYTHROMYCIN (OPTH) 3.5 GM OINT OP ONE (22:04)
[2023-11-24] MEDS: TETRACAINE HCL 0.5% OPTH SOLN 4 ML BTL OP ONE (22:05)
[2023-11-24] MEDS: FLUORESCEIN SOD(OPTH) 1 MG STRP OP ONE (22:05)
[2023-11-24 22:30] VITALS: BP 153/87; PULSE 73; RESP 18; TEMP 97.7; O2SAT 97
[2023-11-24] MEDS: SODIUM CHLORIDE FLUSH 10 ML SYR IV ONE (22:38)
== END 2023-11-24 22:30 | disposition home or self-care (01) ==
LOC: FSED 21:18
DX: T15.01XA Foreign body in cornea, right eye, initial encounter (principal); Y93.H2 Activity, gardening and landscaping; Y92.89 Other specified places as the place of occurrence of the external cause
CPT/HCPCS: 65220; 99283; J7030